=== PATIENT | male | born 2000 | race Caucasian/White ===

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

== ENCOUNTER 2024-03-16 07:20 | Day surgery (SDC) | payer BC ==
[~2024-03-16] VITALS: Ht 182.9 cm; Wt 79.9 kg
[~2024-03-16 07:20] MED LIST changes: +Lactated Ringer's 1,000 ML IV ONE
[2024-03-16] MEDS ORDERED: Midazolam HCl 1MG / ML 2ML Vial ONE (07:34)
[2024-03-16] MEDS ORDERED: FentaNYL Citrate 50 MCG/ML 2 ML Injection ONE ×2 (07:35→14:57)
[2024-03-16] MEDS ORDERED: propofoL 20 ML IV ONE (07:52)
[2024-03-16] MEDS ORDERED: CeFAZolin Sodium 2,000 MG VIAL ONE (07:56)
[2024-03-16] MEDS ORDERED: NS 50 ML IV ONE (07:56)
[2024-03-16] MEDS ORDERED: Tranexamic Acid 100 ML IV ONE (08:01)
[2024-03-16] MEDS ORDERED: Lactated Ringer's 1,000 ML IV ONE ×2 (08:13→10:55)
[2024-03-16] MEDS ORDERED: Ketorolac Tromethamine 30mg Vial ONE (08:18)
[2024-03-16] MEDS ORDERED: HYDROmorphone HCl/Pf 1MG SYR ONE (09:12)
[2024-03-16] MEDS ORDERED: Dexamethasone Sod Phos 10 MG/ML 1ML VIAL ONE (09:49)
[2024-03-16] MEDS ORDERED: Rocuronium Bromide 10 MG/ML 5ML Injection IV ONE ×2 (09:49→13:10)
[2024-03-16] MEDS ORDERED: Ondansetron HCl 2 MG / ML 2ML Vial ONE ×2 (09:49→14:56)
--- NOTE | 2024-03-16 09:52 | NUR ---
03/16/24 0952 RED SCANLON ANESTHESIA, DR PLUMMER, TIME OUT AT BEDSIDE 0935. PROCEDURE START AT 0940, END @ 0945. NO COMPLICATIONS. PT MONITORED SPO2, EKG THROUGHOUT.
--- NOTE | 2024-03-16 10:46 | NUR ---
03/16/24 1046 Aissatou Resendez 1 MG OF EPI ADDED TO FIRST 3 BAGS OF LR FOR IRREGATION. 2X SAFETY STRAPS 4X GEL PADS: 1X UNDER EACH STRAP, 1X UNDER COCCYX, 1X UNDER RIGHT ARM (BETWEEN ARM AND ARM BOARD) STANDARD FOAM FACE MASK
[2024-03-16] MEDS ORDERED: Lidocaine 1%-Epineph 1:100000 20 ML MDV INJ ONE (10:53)
[2024-03-16] MEDS ORDERED: EPINEPhrine HCl 1 MG/ML 1ML Amp XX ONE (10:54)
[2024-03-16] MEDS ORDERED: Bupivacaine 0.5% HCl 5 MG/ML 30MLVIAL ONE (11:23)
[2024-03-16] MEDS ORDERED: Bupivacaine HCl 0.25% 30 ML Injection ONE (11:23)
[2024-03-16] MEDS ORDERED: Labetalol HCL 5 MG/ML 4ML Injection (Single Dose) ONE (13:11)
[2024-03-16] MEDS ORDERED: Metoclopramide HCl 5MG / ML 2ML Vial ONE (15:45)
--- NOTE | 2024-03-16 16:23 | NUR ---
03/16/[address] CONSULTING AND ASSESSING PT NUMBNESS IN LEFT FOOT. PT C/O NUMBNESS IN BOTTOM OF FOOT AND TINGLING IN LEFT FOOT AND TOES.
[2024-03-16] MEDS ORDERED: OxyCODONE HCL 5 MG TAB ONE (16:59)
[2024-03-16 17:26] VITALS: BP 119/83
== END 2024-03-16 17:23 | disposition home or self-care (01) ==
LOC: ORSCSDS 07:20
PROVIDERS: Orthopaedic Surgery Sports Medicine
PROC: 0LM24ZZ Reattachment of Left Shoulder Tendon, Percutaneous Endoscopic Approach (ICD-10-PCS; principal; 2024-03-16 09:00)
DX: S43.002A Unspecified subluxation of left shoulder joint, initial encounter (principal)
CPT/HCPCS: A9270; C1713; J0171; J0690; J1100; J1171; J1885; J2250; J2405; J2704; J2765; J3010; J7120